=== PATIENT | female | born 1960 | race African-American/Black ===

== ENCOUNTER 2016-12-30 17:54 | Emergency (ER) | payer MEDICARE, OTHER ==
[~2016-12-30] VITALS: Ht 165.1 cm; Wt 77.7 kg
[~2016-12-30 17:54] MED LIST: ASPI81TA82 PO; ATOR40TA49 PO; CARV12.5 PO; CYCL-36 PO; FURO20 PO; HYDR10SO PO; LISI-363 PO; NORV5TAB PO; PROM25SU8 PO; WELL150T PO
[2016-12-30 18:00] VITALS: BP 161/86; PULSE 76; RESP 16; TEMP 98.4; O2SAT 99
--- NOTE | 2016-12-30 18:43 | PD ---
HPI Chief Complaint: Fall Time Seen by Provider: 18:43 Travel History International Travel<30 days: No Contact w/Intl Traveler<30days: No Traveled to known affect area: No History of Present Illness HPI 56-year-old Afro-[place] female presents the emergency department with flareup of her left-sided sciatica. Patient states she fell after tripping over her father's walker in her garage falling and causing a flareup of her left-sided sciatica. She denies weakness, tingling, or bowel or bladder issues. She states she has pain medication and muscle relaxants at home. Requesting an anti -inflammatory and Toradol shot as this is helped in the past. Her pain is 9 out of 10 currently. She denies any other injury. She is allergic to Diovan, morphine, sulfa, and Xeralto. PFSH Past Medical History Arthritis: Yes (DJD) Heart Rhythm Problems: No Cancer: No Cardiac Catheterization: Yes (2X 2000,2004) Cardiovascular Problems: Yes ([place], ARRHYTHMIA) High Cholesterol: Yes Chest Pain: Yes Congestive Heart Failure: No Cerebrovascular Accident: Yes (11/2010) Coronary Artery Disease: Yes Diabetes: Yes (DIET CONTROLLED) Diminished Hearing: No Endocrine: Yes Gastrointestinal Disorders: Yes (HX BLEEDING ULCER, GERD) GERD: Yes Genitourinary: No Hepatitis: No Hiatal Hernia: No Hypertension: Yes Immune Disorder: No Musculoskeletal: Yes (CHR. LUMBAR PAIN, OA) Neurologic: Yes (CVA) Psychiatric: Yes (ANXIETY) Reproductive: Yes (HYSTERECTOMY) Respiratory: No Immunizations Current: Yes Myocardial Infarction: Yes (2000) Thyroid Disease: No Ulcer: Yes PNEUMOCCOCAL Vaccine (Year): 2 Menopausal: Yes : 4 Para: 4 Past Surgical History Abdominal Surgery: Yes (EXPL. LAP/ EXC. BLADDER MASS) AICD: No Coronary Artery Bypass Graft: No Genitourinary Surgery: Yes (BLADDER SUSP.; RECTOCELE/CYSTOCELE REP.) Gynecologic Surgery: Yes (HYSTERECTOMY ) Hysterectomy: Yes Joint Replacement: Yes (RIGHT KNEE) Neurologic Surgery: Yes (LAMINECTOMY) Pacemaker: No Thoracic Surgery: No Tonsillectomy: Yes Other Surgery: Yes (RT OVARY REMOVED/LUMBAR ABLATION ) Social History Alcohol Use: Yes (rare) Tobacco Use: No Substance Use: No Allergies-Medications (Allergen,Severity, Reaction): Coded Allergies: Sulfa (Verified Allergy, Severe, HIVES, 12/30/16) Xarelto (Verified Allergy, Severe, CVA, 12/30/16) Morphine (Verified Allergy, Mild, 12/30/16) Diovan (Verified Adverse Reaction, Unknown, increased liver enzymes, ) Reported Meds & Prescriptions Reported Meds & Active Scripts Active Reported Phenergan (Promethazine HCl) 25 Mg Tablet 25 Mg PO Q6H PRN Norvasc (Amlodipine Besylate) 5 Mg Tab 5 Mg PO DAILY PRN Hydrocodone-Acetaminophen 10-325 mg Tab 1 Tab PO Q6H PRN Lisinopril 20 Mg Tab 20 Mg PO BID Lasix (Furosemide) 20 Mg Tab 20 Mg PO DAILY Coreg (Carvedilol) 25 Mg Tab 25 Mg PO BID Wellbutrin Xl 24 HR (Bupropion HCl) 300 Mg Tab 300 Mg PO DAILY Atorvastatin (Atorvastatin Calcium) 40 Mg Tab 40 Mg PO HS Aspirin EC (Aspirin) 81 Mg Tabdr 81 Mg PO DAILY Review of Systems Except as stated in HPI: all other systems reviewed are Neg General / Constitutional: No: Fever Eyes: No: Visual changes HENT: No: Headaches Cardiovascular: No: Chest Pain or Discomfort Respiratory: No: Shortness of Breath Gastrointestinal: No: Abdominal Pain Genitourinary: No: Dysuria Musculoskeletal: Positive: Arthralgias (see history of present illness), Limited ROM, Pain Skin: No Rash Neurologic: No: Weakness Psychiatric: No: Depression Endocrine: No: Polydipsia Hematologic/Lymphatic: No: Easy Bruising Physical Exam Narrative GENERAL: Patient is in moderate distress. SKIN: Warm and dry. Normal color. Normal turgor. No signs of trauma. HEAD: Atraumatic. Normocephalic. EYES: Pupils equal and round. No scleral icterus. No injection or drainage. ENT: No nasal bleeding or discharge. Mucous membranes pink and moist. Pharynx is clear. Airway is patent. NECK: Trachea midline. Supple and nontender without lymphadenopathy. CARDIOVASCULAR: Regular rate and rhythm. RESPIRATORY: No accessory muscle use. Clear to auscultation. Breath sounds equal bilaterally. MUSCULOSKELETAL: Extremities without clubbing, cyanosis, or edema. No obvious deformities. Patient is noted to have tenderness with palpation along the left sciatic notch, with worsening was left-sided straight leg raise at 35. There is no weakness. Normal dorsiflexion and plantar flexion. Neurovascular exam is normal. NEUROLOGICAL: Awake and alert. No obvious cranial nerve deficits. Motor grossly within normal limits. Five out of 5 muscle strength in the arms and legs. Normal speech. PSYCHIATRIC: Appropriate mood and affect; insight and judgment normal. Data Data Last Documented VS Vital Signs Date Time Temp Pulse Resp B/P Pulse Ox O2 Delivery O2 Flow Rate FiO2 12/30/16 18:00 98.4 76 16 161/86 99 Orders Ketorolac Inj (Toradol Inj) (12/30/16 19:00) Dexamethasone Inj (Decadron Inj) (12/30/16 19:00) [facility] Medical Decision Making Medical Screen Exam Complete: Yes Emergency Medical Condition: Yes Medical Record Reviewed: Yes Differential Diagnosis Trip and fall. Lumbar strain. Left-sided sciatica. Narrative Course Patient is medically stable at time of exam. Radiographic imaging is not felt warranted based on the patient's history and physical. Patient is given Toradol 60 mg IM as well as 10 mg Decadron IM. Patient to continue prednisone 20 mg twice a day for 5 days. Patient take her regular pain medication and Flexeril as needed. Patient should use heat followed by ice and follow-up with her primary care physician if symptoms did not improve or worsen. Patient can always return to emergency Department with worsening symptoms as needed. Diagnosis Primary Impression: Slipping, tripping and stumbling without falling due to stepping on object, initial encounter Additional Impression: Left-sided low back pain with sciatica Qualified Code: M54.42 - Acute left-sided low back pain with left-sided sciatica Referrals: Primary Care Physician Patient Instructions: General Instructions, Prednisone (By mouth), Sciatica (ED ) Additional Instructions: Radiographic imaging is not felt warranted based on the patient's history and physical. Patient is given Toradol 60 mg IM as well as 10 mg Decadron IM. Patient to continue prednisone 20 mg twice a day for 5 days. Patient take her regular pain medication and Flexeril as needed. Patient should use heat followed by ice and follow-up with her primary care physician if symptoms did not improve or worsen. Patient can always return to emergency Department with worsening symptoms as needed. Med/Other Pt SpecificInfo: Prescription(s) given Scripts Prednisone 20 Mg Tab20 Mg PO BID #10 TAB Prov:Clemente Carrasco MD 12/30/16 Disposition: 01 DISCHARGE HOME Condition: Stable [place] Dec 30, 2016 18:43
[2016-12-30] MEDS ORDERED: PROM25TA10 PO (18:52)
[2016-12-30] MEDS ORDERED: AMLO5 PO (18:52)
[2016-12-30] MEDS ORDERED: HYDR-3583 PO (18:52)
[2016-12-30] MEDS ORDERED: ASPI81TA11 PO (18:52)
[2016-12-30] MEDS ORDERED: WELLTAB39 PO (18:52)
[2016-12-30] MEDS ORDERED: CORE25TA PO (18:52)
[2016-12-30] MEDS ORDERED: LISI-515 PO (18:52)
[2016-12-30] MEDS ORDERED: ATOR40TA16 PO (18:52)
[2016-12-30] MEDS ORDERED: FURO1TAB62 PO (18:52)
[2016-12-30] MEDS ORDERED: PRED20 PO (18:57)
[2016-12-30] MEDS ORDERED: KETOROLAC TROMETHAMINE 60 MG/2 ML (IM) VIAL IM ONE (19:00)
[2016-12-30] MEDS ORDERED: DEXAMETHASONE SOD PHOS 20 MG/5 ML VIAL IM ONE (19:00)
== END 2016-12-30 19:30 | disposition home or self-care (01) ==
LOC: PHED 17:54 → PHEFT 19:30
DX: M54.42 Lumbago with sciatica, left side (principal); I10 Essential (primary) hypertension; E11.9 Type 2 diabetes mellitus without complications; E78.00 Pure hypercholesterolemia, unspecified; I25.2 Old myocardial infarction; W01.0XXA Fall on same level from slipping, tripping and stumbling without subsequent striking against object, initial encounter; Y92.015 Private garage of single-family (private) house as the place of occurrence of the external cause; Z87.39 Personal history of other diseases of the musculoskeletal system and connective tissue; Z86.79 Personal history of other diseases of the circulatory system; Z87.19 Personal history of other diseases of the digestive system; Z86.69 Personal history of other diseases of the nervous system and sense organs; Z86.59 Personal history of other mental and behavioral disorders
CPT/HCPCS: 96372; 99284; J1100; J1885

== ENCOUNTER 2017-07-08 04:09 | Emergency (ER) | payer OTHER ==
[~2017-07-08] VITALS: Ht 165.1 cm; Wt 79.8 kg
[~2017-07-08 04:09] MED LIST changes: +AMLO5 PO; +ASPI81TA23 PO; -ASPI81TA82 PO; +ATOR40TA16 PO; -ATOR40TA49 PO; -CARV12.5 PO; +CORE25TA PO; -CYCL-36 PO; +FURO1TAB62 PO; -FURO20 PO; +HYDR-3583 PO; -HYDR10SO PO; -LISI-363 PO; +LISI-515 PO; -NORV5TAB PO; +PRED20 PO; -PROM25SU8 PO; +PROM25TA10 PO; -WELL150T PO; +WELLTAB39 PO
[2017-07-08 04:14] VITALS: BP 176/86; PULSE 83; RESP 14; TEMP 97.8; O2SAT 98
--- NOTE | 2017-07-08 04:28 | PD ---
HPI Chief Complaint: back pain Time Seen by Provider: 04:14 Travel History International Travel<30 days: No Contact w/Intl Traveler<30days: No Traveled to known affect area: No History of Present Illness HPI 57-year-old female complains of upper back pain. Patient states that she has history of recurrent neck and back pain. Patient has been seen by a local physician and awaiting referral to neurosurgeon. Patient states the pain localized upper back area with a burning sensation on the skin. Patient denies any recent injury. Patient denies any chest pain or shortness of breath. Patient denies any fever chills. Patient denies any focal weakness or numbness of the extremity. PFSH Past Medical History Arthritis: Yes (DJD) Heart Rhythm Problems: No Cancer: No Cardiac Catheterization: Yes (2X 2000,2004) Cardiovascular Problems: Yes ([place], ARRHYTHMIA) High Cholesterol: Yes Chest Pain: Yes Congestive Heart Failure: No Cerebrovascular Accident: Yes (11/2010) Coronary Artery Disease: Yes Diabetes: Yes (DIET CONTROLLED) Diminished Hearing: No Endocrine: Yes Gastrointestinal Disorders: Yes (HX BLEEDING ULCER, GERD) GERD: Yes Genitourinary: No Hepatitis: No Hiatal Hernia: No Hypertension: Yes Immune Disorder: No Musculoskeletal: Yes (CHR. LUMBAR PAIN, OA) Neurologic: Yes (CVA) Psychiatric: Yes (ANXIETY) Reproductive: Yes (HYSTERECTOMY) Respiratory: No Immunizations Current: Yes Myocardial Infarction: Yes (2000) Thyroid Disease: No Ulcer: Yes PNEUMOCCOCAL Vaccine (Year): 2 Menopausal: Yes : 4 Para: 4 Past Surgical History Abdominal Surgery: Yes (EXPL. LAP/ EXC. BLADDER MASS) AICD: No Coronary Artery Bypass Graft: No Genitourinary Surgery: Yes (BLADDER SUSP.; RECTOCELE/CYSTOCELE REP.) Gynecologic Surgery: Yes (HYSTERECTOMY ) Hysterectomy: Yes Joint Replacement: Yes (RIGHT KNEE) Neurologic Surgery: Yes (LAMINECTOMY) Pacemaker: No Thoracic Surgery: No Tonsillectomy: Yes Other Surgery: Yes (RT OVARY REMOVED/LUMBAR ABLATION ) Social History Alcohol Use: Yes (rare) Tobacco Use: Yes (OCC CIGAR) Substance Use: No Allergies-Medications (Allergen,Severity, Reaction): Coded Allergies: Sulfa (Sulfonamide Antibiotics) (Unverified Allergy, Severe, HIVES, ) rivaroxaban (Unverified Allergy, Severe, CVA, 01/14/17) morphine (Unverified Allergy, Mild, 01/14/17) valsartan (Unverified Adverse Reaction, Unknown, increased liver enzymes, 01/14/17) Reported Meds & Prescriptions Reported Meds & Active Scripts Active Prednisone 20 Mg Tab 20 Mg PO BID Reported Phenergan (Promethazine HCl) 25 Mg Tablet 25 Mg PO Q6H PRN Norvasc (Amlodipine Besylate) 5 Mg Tab 5 Mg PO DAILY PRN Hydrocodone-Acetaminophen 10-325 mg Tab 1 Tab PO Q6H PRN Lisinopril 20 Mg Tab 20 Mg PO BID Lasix (Furosemide) 20 Mg Tab 20 Mg PO DAILY Coreg (Carvedilol) 25 Mg Tab 25 Mg PO BID Wellbutrin Xl 24 HR (Bupropion HCl) 300 Mg Tab 300 Mg PO DAILY Atorvastatin (Atorvastatin Calcium) 40 Mg Tab 40 Mg PO HS Aspirin EC (Aspirin) 81 Mg Tabdr 81 Mg PO DAILY Review of Systems General / Constitutional: No: Fever Eyes: No: Visual changes HENT: No: Headaches Cardiovascular: No: Chest Pain or Discomfort Respiratory: No: Shortness of Breath Gastrointestinal: No: Abdominal Pain Genitourinary: No: Dysuria Musculoskeletal: No: Pain Skin: No Rash Neurologic: No: Weakness Psychiatric: No: Depression Endocrine: No: Polydipsia Hematologic/Lymphatic: No: Easy Bruising Physical Exam Narrative GENERAL: Well-nourished, well-developed patient. SKIN: Focused skin assessment warm/dry. HEAD: Normocephalic. EYES: No scleral icterus. No injection or drainage. NECK: Supple, trachea midline. No JVD or lymphadenopathy. CARDIOVASCULAR: Regular rate and rhythm without murmurs, gallops, or rubs. RESPIRATORY: Breath sounds equal bilaterally. No accessory muscle use. GASTROINTESTINAL: Abdomen soft, non-tender, nondistended. MUSCULOSKELETAL: No cyanosis, or edema. BACK: Moderate tenderness on palpation thoracic area, without obvious deformity. No CVA tenderness. Neurologic exam normal. Data Data Last Documented VS Vital Signs Date Time Temp Pulse Resp B/P (MAP) Pulse Ox O2 Delivery O2 Flow Rate FiO2 07/08/17 04:14 97.8 83 14 176/86 (116) 98 Orders Orders Ketorolac Inj (Toradol Inj) (07/08/17 04:30) Dexamethasone Inj (Decadron Inj) (07/08/17 04:30) MDM Medical Decision Making Medical Screen Exam Complete: Yes Emergency Medical Condition: Yes Differential Diagnosis Differential diagnosis including acute exacerbation back pain Narrative Course 57-year-old female with acute exacerbation upper back pain. Decadron 8 mg IM. Toradol 60 mg IM. Diagnosis Primary Impression: Upper back pain Additional Instructions: Prednisone is directed. Continue with medication. Follow-up with personal physician. Return if worse. Med/Other Pt SpecificInfo: Prescription(s) given Scripts Ranitidine (Zantac) 300 Mg Tab 300 MG PO DAILY, #10 TAB 0 Refills Prov: Harjeet Iniguez MD 07/08/17 Prednisone (Prednisone) 20 Mg Tab 20 MG PO BID, #10 TAB 0 Refills Prov: Harjeet Iniguez MD 07/08/17 Disposition: 01 DISCHARGE HOME Condition: Stable Harjeet Iniguez MD Jul 08, 2017 04:28
[2017-07-08] MEDS ORDERED: PRED20 PO (04:29)
[2017-07-08] MEDS ORDERED: ZANT300T PO (04:29)
[2017-07-08] MEDS ORDERED: KETOROLAC TROMETHAMINE 60 MG/2 ML (IM) VIAL IM ONE (04:30)
[2017-07-08] MEDS ORDERED: DEXAMETHASONE SOD PHOS 4 MG/ML VIAL IM ONE (04:30)
[2017-07-08 04:42] VITALS: BP 168/88; TEMP 98
== END 2017-07-08 04:43 | disposition home or self-care (01) ==
LOC: PHED 04:09
DX: M54.89 Other dorsalgia (principal); M19.90 Unspecified osteoarthritis, unspecified site; E78.00 Pure hypercholesterolemia, unspecified; I25.10 Atherosclerotic heart disease of native coronary artery without angina pectoris; E11.9 Type 2 diabetes mellitus without complications; I10 Essential (primary) hypertension; I25.2 Old myocardial infarction; Z86.73 Personal history of transient ischemic attack (TIA), and cerebral infarction without residual deficits; Z88.8 Allergy status to other drugs, medicaments and biological substances; Z88.5 Allergy status to narcotic agent; Z88.2 Allergy status to sulfonamides
CPT/HCPCS: 96372; 99283; J1100; J1885

== ENCOUNTER 2017-07-22 00:22 | Emergency (ER) | payer OTHER ==
[~2017-07-22] VITALS: Ht 165.1 cm; Wt 79.2 kg
[~2017-07-22 00:22] MED LIST changes: +ZANT300T PO
[2017-07-22 00:38] VITALS: BP 222/105; PULSE 94; RESP 14; TEMP 98.3; O2SAT 99
[2017-07-22] MEDS ORDERED: PROM1SUP7 RECTAL (01:35)
[2017-07-22] MEDS ORDERED: ROBA750T PO (01:36)
[2017-07-22] MEDS ORDERED: CYCL10TA PO (01:36)
[2017-07-22] MEDS ORDERED: CLON1TAB PO (01:38)
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
[2017-07-22] MEDS ORDERED: KETOROLAC TROMETHAMINE 60 MG/2 ML (IM) VIAL IM ONE (02:00)
[2017-07-22] MEDS ORDERED: DEXAMETHASONE SOD PHOS 4 MG/ML VIAL IM ONE (02:00)
[2017-07-22] MEDS ORDERED: ORPHENADRINE INJ 60 MG/2 ML AMP IM ONE (02:00)
[2017-07-22] MEDS ORDERED: CLON0.1T PO (02:18)
[2017-07-22 03:02] VITALS: BP 175/99; PULSE 75; O2SAT 98
== END 2017-07-22 03:09 | disposition home or self-care (01) ==
LOC: PHED 00:22
DX: M54.6 Pain in thoracic spine (principal); I10 Essential (primary) hypertension; E78.5 Hyperlipidemia, unspecified; E11.9 Type 2 diabetes mellitus without complications; I25.10 Atherosclerotic heart disease of native coronary artery without angina pectoris; K21.9 Gastro-esophageal reflux disease without esophagitis; M50.30 Other cervical disc degeneration, unspecified cervical region; M51.34 Other intervertebral disc degeneration, thoracic region; M51.36 Other intervertebral disc degeneration, lumbar region; I25.2 Old myocardial infarction; Z72.0 Tobacco use
CPT/HCPCS: 96372; 99283; J1100; J1885; J2360